=== PATIENT | male | born 1985 | race Caucasian/White ===

== ENCOUNTER 2024-01-06 19:12 | Emergency (ER) | payer SELFPAY ==
[2024-01-06 19:24] VITALS: BP 150/91; PULSE 107; TEMP 36.8; O2SAT 99; BMI 23.7
--- NOTE | 2024-01-06 19:33 | ED.GENADUL1 ---
HPI HPI - General Adult General Chief complaint: Skin/Abscess/Foreign Body Stated complaint: Upper Extremity Laceration/Puncture Time Seen by Provider: 01/06/24 19:29 Source: patient Mode of arrival: walk-in Limitations: no limitations History of Present Illness HPI narrative: Patient is a 38-year-old male who presents to the emergency department for evaluation of a laceration to the distal tip of the left third finger. He states he cut his finger on a razor knife. Bleeding is well-controlled. He had no other associated injuries. Unknown last tetanus. He is right-hand dominant. Related Data Home Medications ?Medication ?Instructions ?Recorded ?Confirmed No Known Home Medications 01/06/24 01/06/24 Allergies Allergy/AdvReac Type Severity Reaction Status Date / Time No Known Drug Allergies Allergy Verified 01/06/24 19:28 Opioid HPI Opioid Management Most Recent Opioid Data: No Data to Display Review of Systems ROS Constitutional Denies: fever or chills Ears, nose, mouth, and throat Denies: throat pain or nasal congestion Respiratory Denies: shortness of breath Gastrointestinal Denies: nausea or vomiting Integumentary/Breast Denies: rash Hematologic/Lymphatic Denies: easy bruising or easy bleeding Exam Narrative Exam Narrative: Gen.: Awake, alert, in no distress Head: Normocephalic, atraumatic ENT: Moist mucous membranes Respiratory: No respiratory distress Extremities: Moves extremities equally, 1.5 cm skin flap laceration adjacent to the fingernail of the left middle finger, distal phalanx at the tip of the finger. No bony involvement, no tendon visualization. No active bleeding. No extension of the laceration through the fingernail. Psych: Normal mood and affect Neuro: No focal neuro deficit Skin: Warm, dry, intact Constitutional Vital Signs, click to edit/add: Last Vital Signs Temp 98.2 F 01/06/24 19:24 Pulse 75 01/06/24 20:11 Resp 18 01/06/24 20:11 BP 138/88 01/06/24 20:11 Pulse Ox 99 01/06/24 20:11 O2 Del Method Room Air 01/06/24 20:11 Course Vital Signs Vital signs: Vital Signs Temperature 98.2 F 01/06/24 19:24 Pulse Rate 107 H 01/06/24 19:24 Respiratory Rate 18 01/06/24 19:24 Blood Pressure 150/91 H 01/06/24 19:24 Pulse Oximetry 99 01/06/24 19:24 Oxygen Delivery Method Room Air 01/06/24 19:24 Temperature 98.2 F 01/06/24 19:24 Pulse Rate 75 01/06/24 20:11 Respiratory Rate 18 01/06/24 20:11 Blood Pressure 138/88 01/06/24 20:11 Pulse Oximetry 99 01/06/24 20:11 Oxygen Delivery Method Room Air 01/06/24 20:11 Medical Decision Making MDM Narrative Medical decision making narrative: Laceration was repaired without difficulty. Please see procedure note for details. Sutures removed in 7 to 10 days with PCP. Tetanus updated in the emergency department. Return to the ER if symptoms change or worsen Laceration repair: Done under sterile conditions. The use of Shur-Clens prep the area. Local injection with lidocaine 1% was used, approximately 5 cc. The wound was irrigated copiously with normal saline. The wound was explored there was no evidence of foreign material. The laceration was approximated with 5-0 nylon. 5 simple interrupted sutures were placed. Patient tolerated the procedure well. The patient was neurovascularly intact post. the patient had bacitracin applied to the laceration and a dry sterile dressing was place. The patient will need to follow-up in the next 7-10 days for removal SUPERVISED APC VISIT, PHYSICIAN ATTESTATION: Based on the medical record the care appears appropriate. ? Medical Records Medical records reviewed: Yes I reviewed the patient's medical records Discharge Plan Discharge Stand Alone Forms: Portal Instructions Chief Complaint: Skin/Abscess/Foreign Body Clinical Impression: Laceration of left middle finger Patient Disposition: Home, Self-Care Time of Disposition Decision: 19:37 Condition: Good Mode of Transportation: Private Vehicle Prescriptions / Home Meds: No Action No Known Home Medications Print Language: Bahamian Instructions: Laceration (ED) Additional Instructions: Sutures removed in 7-10 days with PCP Referrals: Hong Page MD [Primary Care Provider] - 1 week Discharge Date/Time: 01/06/24 20:11
[2024-01-06] MEDS: ADACEL DIPH,PERTUSS(ACELL),TET VAC/PF 0.5 ML ADULT SYRINGE IM (20:05)
[2024-01-06] MEDS: BACITRACIN 0.9 GM PACKET 1 PACKET TOPICAL (20:09)
[2024-01-06] MEDS: LIDOCAINE HCL 1% 100 MG/10 ML MDV INJ (20:10)
[2024-01-06 20:11] VITALS: BP 138/88; PULSE 75; O2SAT 99
== END 2024-01-06 20:11 | disposition home or self-care (01) ==
PROVIDERS: Emergency Provider Emergency Medicine; Family Provider Family Medicine; PCP Family Medicine
DX: S61.213A Laceration without foreign body of left middle finger without damage to nail, initial encounter (principal); Z23 Encounter for immunization; W26.0XXA Contact with knife, initial encounter
CPT/HCPCS: 12001; 90471; 90715; 99284

== ENCOUNTER 2024-12-22 07:20 | Emergency (ER) | payer OTHER, SELFPAY ==
[2024-12-22] VITALS (29 sets, daily range): BP systolic 94–133; BP diastolic 43–89; PULSE 99–117; TEMP 36.4–36.6; O2SAT 98–100
[2024-12-22] MEDS: NALOXONE HCL 2 MG/2 ML SYRINGE IV (07:20)
--- NOTE | 2024-12-22 07:23 | XR_ITS ---
[facility] [place] [id number] Patient Name: YURY BEAVER MRN: [id number] date: 1985 Sex: M Assigned Patient Location: ER Current Patient Location: ED.MAIN Accession/Order Number: [id number] Exam Date: 12/22/2024 09:01 Report Date: 12/22/2024 09:02 At the request of: KAYDEN TORRES MD Procedure: XR chest 1V PORTABLE AP ERECT CHEST 0718 hours CLINICAL HISTORY: Overdose with altered mental status COMPARISON: None The heart is within normal limits. There is no vascular congestion. No consolidation is noted. There is no effusion or pneumothorax. The osseous structures are intact. XR/XR chest 1V IMPRESSION: NO ACUTE FINDINGS Impression dictated by: Monica Gerard M.D. 12/22/2024 9:02 AM Dictation Location: [place] [address] Electronically authenticated by: [id number] Y Date: 12/22/2024 09:02
--- NOTE | 2024-12-22 07:23 | ECG_ITS ---
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 Measurements Intervals Scheller Rate: 116 P: 90 MI: 156 QRS: 84 QRSD: 100 T: 53 QT: 342 QTc: 411 Interpretive Statements 1120 Sinus tachycardia 9140 abnormal rhythm ECG No previous ECG available for comparison Electronically Signed On 12-22-2024 21:03:09 EDT by YENY EPSTEIN M.D.
--- OUTSIDE RECORDS SUMMARY | 2024-12-22 07:28 | XMS_ITS | Encounter Summary ---
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 Ballistics Professor Name Role Phone Unavailable Primary Care Provider Unavailabl e Encounter Details Date Type Department Care Team (Late st Contact Info) Description 03/04/2024 Telephone [facility] [address] [place] [address] Araseli Phelps, OT [address] [place] [address] Social History Tobacco Use Types Packs/Day Years Used Date Smoking Tobacco: Never Assessed Sex and Gender Information Value Date Recorded Sex Assigned at Not on file Legal Sex Male 7:04 PM EDT Gender Identity Not on file Sexual Orientation Not on file documented as of this encounter Plan of Treatment Not on file documented as of this encounter Visit Diagnoses Not on filedocumented in this encounter
--- OUTSIDE RECORDS SUMMARY | 2024-12-22 07:28 | XMS_ITS | Clinical Summary ---
Author Organization [facility] Address [address] [place] [address] Care Team Providers Care Bottom Crane Operator Name Role Phone Unavailable Primary Care Provider Unavailabl e Social History Tobacco Use Types Packs/Day Years Used Date Smoking Tobacco: Never Assessed Sex and Gender Information Value Date Recorded Sex Assigned at Not on file Legal Sex Male 7:04 PM EDT Gender Identity Not on file Sexual Orientation Not on file Plan of Treatment Not on file
[2024-12-22] MEDS: NALOXONE HCL IV ×2 (07:30→10:30)
[2024-12-22] MEDS: SODIUM CHLORIDE 0.9% IV ×2 (07:30→10:30)
[2024-12-22 07:34] LABS: Glucometer 48 mg/dL (74-106)
[2024-12-22] MEDS: DEXTROSE 10 % IN WATER 1,000 ML 50 ML IV (07:43)
[2024-12-22] MEDS: DEXTROSE 50 %-WATER 25 GM/50 ML SYRINGE IV (07:45)
[2024-12-22 07:48] LABS: Hematocrit 44.6 % (42.0-54.0); Mean Corpuscular HGB Conc 33.6 g/dL (29.9-35.2); Mean Corpuscular Hemoglobin 32.6 pg (25.9-34.0); Mean Platelet Volume 12.4 fL (9.5-13.5); Platelet Count 246 10^3/uL (150-450); White Blood Count 26.9 10^3/uL (4.0-11.0)
[2024-12-22] MEDS: 0.9 % SODIUM CHLORIDE 1,000 ML 1000 ML IV ×2 (07:52→09:08)
[2024-12-22] MEDS: ONDANSETRON PF 4 MG/2 ML VIAL IV (07:56)
[2024-12-22 08:00] LABS: Glucometer 150 mg/dL (74-106)
[2024-12-22 08:01] LABS: INR 1.17; Prothrombin Time 12.2 sec (9.0-11.6)
[2024-12-22 08:08] LABS: Alanine Aminotransferase 157 U/L (16-63); Albumin Globulin Ratio 1.1; Albumin Level 3.5 g/dL (3.4-5.0); Alkaline Phosphatase 119 U/L (46-116); Anion Gap 18.2; Aspartate Amino Transferase 201 U/L (15-37); BUN Creatinine Ratio 11.2; Bilirubin Total 0.1 mg/dL (0.2-1.0); Calcium 7.4 mg/dL (8.5-10.1); Carbon Dioxide 25.2 mmol/L (21.0-32.0); Chloride 103 mmol/L (98-107); Estimated GFR (African America 35 (>=60 mL/min/1.73m^2); Estimated GFR (Non-African Ame 29 (>=60 mL/min/1.73m^2); Globulin 3.2 g/dL; Glucose 153 mg/dL (74-106); Potassium 5.4 mmol/L (3.5-5.1); Sodium 141 mmol/L (136-145); Total Protein 6.7 g/dL (6.4-8.2)
[2024-12-22 08:14] LABS: Band Neutrophils Absolute 0.3 10^3/uL (0.0-0.3); Lymphocytes Absolute Manual 2.15 10^3/uL (1.20-3.80); Monocytes Absolute Manual 3.22 10^3/uL (0.30-0.80); Segmented Neut Absolute Manual 21.25 10^3/uL (1.4-6.5)
[2024-12-22 08:16] LABS: TSH W/ REFLEX FT4 2.148 uIU/mL (0.358-3.740)
[2024-12-22 08:20] LABS: Creatine Kinase 161 U/L (39-308); Ethanol <3 mg/dL
[2024-12-22 08:22] LABS: Acetaminophen <2.0 ug/mL (10.0-30.0); Lactate/Lactic Acid 4.1 mmol/L (0.4-2.0); Salicylate <2.8 mg/dL (<=19.9); Troponin I High Sensitivity 230.5 pg/mL (4.0-76.1)
[2024-12-22 08:23] LABS: Magnesium 2.4 mg/dL (1.8-2.4)
--- NOTE | 2024-12-22 08:27 | ED.GENADUL1 ---
HPI HPI - General Adult General Chief complaint: Overdose Stated complaint: OVERDOSE Time Seen by Provider: 12/22/24 07:23 Source: family and law enforcement Mode of arrival: ambulance Limitations: altered mental status History of Present Illness HPI narrative: Patient is a 39-year-old male who is presenting to the ER today with chief complaint of overdose of fentanyl possibly. Mother found patient at 730 this morning, laying sideways in the bed. Patient was unresponsive. Patient currently living with mother. Patient does have a illicit drug history. Mother thought patient has been sober and working. No trauma or injury that we are aware of. Patient was lying in bed, no vomit around the patient. Patient was unresponsive. There was a empty Narcan bottle underneath his pillow. Mother found a another Narcan and one of his packets downstairs and she administer that as well. Police administered a Narcan into each nostril. Patient has potentially had a total of 12 to 16 mg of Narcan so far prior to arrival per EMS and police. The phones are currently not working for internal/external phone calls at [facility]. EMS arrived, stating that patient had had 60 mg of Narcan and this was what EMS are initially stated. When patient was placed in room 5, he had a GCS of 6. His eyes were open, he had no verbal stimuli, he had no response to painful stimuli. Patient has no scalp hematoma. Patient has some bruising noted to his chest wall from sternal rubs. No other signs of trauma. Patient will be sent to CT of the head and C-spine will come back and reassess his GCS. If it is still less than 8, he will be intubated. All systems are negative except as noted/marked. All systems reviewed and otherwise negative. Nurses note and vital signs reviewed and patient is not hypoxic. Patient was placed on 2 L for comfort. Patient arrived with no oxygen. General: The patient appears severe distress secondary to unresponsive. Patient is resting comfortably on cart. Patient is toxic, lethargic, or listless Skin: Warm, dry, no pallor noted. There is no rash noted. No petechiae, purpura. Patient has bruising to chest wall from sternal rubs at work being done prior to arrival. Head: Normocephalic, atraumatic, patient is not in a cervical collar. Eye: Normal conjunctiva, no drainage, EOMI. PERRL. Pupils are 3 mm, sluggish equal bilateral. Ears, Nose, Mouth, and Throat: oral mucosa is moist. Nares patent. Mouth without vesicles. No signs of tongue laceration, no signs of intraoral trauma. Cardiovascular: Tachycardic regular Rate and Rhythm, no murmur, gallop, rub Respiratory: Patient is mild respiratory distress, patient has sonorous respirations, no signs of emesis, no obvious signs of possible aspiration no accessory muscle use, lungs are clear to auscultation, no wheezing, rales or rhonchi Back: non-tender, no CVA tenderness bilaterally to percussion. No CT LS midline pain GI: no tenderness to palpation, no masses appreciated. No rebound, guarding, or rigidity noted. No distention : Patient is circumcised, 2 descended testicles. No signs of trauma or abuse surrounding penis, testicles, scrotum, or perineum. No bruising or trauma noted. Musculoskeletal: Patient has full range of motion of all of the extremities, no motor, sensory, or focal neurological deficits Neurological: A&O x0, patient initially is not speaking Related Data Home Medications ?Medication ?Instructions ?Recorded ?Confirmed No Known Home Medications 01/06/24 01/06/24 Allergies Allergy/AdvReac Type Severity Reaction Status Date / Time No Known Drug Allergies Allergy Verified 12/22/24 08:08 Exam Constitutional Vital Signs, click to edit/add: Last Vital Signs Temp 98 F 12/22/24 07:20 Pulse 99 H 12/22/24 10:50 Resp 12 12/22/24 10:50 BP 112/89 12/22/24 10:50 Pulse Ox 100 12/22/24 10:50 O2 Del Method Nasal Cannula 12/22/24 07:20 O2 Flow Rate 2 12/22/24 07:20 Course Vital Signs Vital signs: Vital Signs Temperature 98 F 12/22/24 07:20 Pulse Rate 116 H 12/22/24 07:20 Respiratory Rate 12 12/22/24 07:20 Blood Pressure 111/76 12/22/24 07:20 Pulse Oximetry 100 12/22/24 07:20 Oxygen Delivery Method Nasal Cannula 12/22/24 07:20 Oxygen Delivery Flow Rate 2 12/22/24 07:20 Temperature 98 F 12/22/24 07:20 Pulse Rate 99 H 12/22/24 10:50 Respiratory Rate 12 12/22/24 10:50 Blood Pressure 112/89 12/22/24 10:50 Pulse Oximetry 100 12/22/24 10:50 Oxygen Delivery Method Nasal Cannula 12/22/24 07:20 Oxygen Delivery Flow Rate 2 12/22/24 07:20 Medical Decision Making MDM Narrative Medical decision making narrative: Patient seen and examined: When patient initially arrived, the phones were not working in the hospital system, we did not receive a phone call at a time. Patient was placed in trauma room 5. Patient had a GCS of 6. Patient was not talking, not responding to painful stimuli, patient did have his eyes open. Patient was given another 2 mg of Narcan IV, a Narcan drip has been ordered, patient will be taken to CT for head and cervical spine, and when patient returns we will reassess GCS and possibly intubate the patient. Septic/overdose/change in mental status has been initiated. Physical exam when patient arrived back from CT. Patient has his eyes open. Patient is intermittently saying words and I cannot hear patient does have filling station attendant upon command, GCS 13. Patient is more alert, but looks very confused. Oxygen has maintained. Patient breath sounds still equal bilateral, no wheezing, crackles, rales. Patient is still slightly tachycardic. Differential diagnosis includes but is not limited to: Intracranial hemorrhage, intracranial edema, overdose, MN, dehydration, electrolyte abnormality, pneumonia, pulmonary edema, trauma, encephalopathy, sepsis Diagnostics and management: Patient will have laboratory studies Relevant laboratory interpretation: Patient's white blood cells were 26, potassium 5.4, VANNESSA 28/2.49, lactic acid 4.1, calcium 7.4, bilirubin 0.1, AST/ALT 201/157. Alk phos 119. Troponin 230. ABG 7.3 3/36/107/19. Radiological studies: Please see the formal radiological report. CT BRAIN WITHOUT CONTRAST: COMPARISON: None FINDINGS: There is artifact at the posterior fossa. The ventricles are normal in size and position. Ricketts-white differentiation is maintained. There are no areas of abnormal attenuation. There is no hemorrhage, mass effect or extra-axial collections. The imaged paranasal sinuses-severe cells are clear. IMPRESSION: NO ACUTE INTRACRANIAL ABNORMALITY. CT CERVICAL SPINE WITHOUT CONTRAST WITH 3D RECONSTRUCTIONS: COMPARISON: None FINDINGS: There is slight reversal of the normal cervical curvature. Alignment is maintained in the sagittal plane. No fractures are identified. The disc spaces are uniform. There is minimal end plate spurring and facet disease. The atlantoaxial relationship is maintained. No prevertebral soft tissue swelling is seen. Small shotty cervical lymph nodes are visualized. IMPRESSION: NO ACUTE BONY INJURY. Reevaluation: When patient arrived back from CT, patient had his eyes open, patient would squeeze his hands on command, patient is speaking inappropriate words, GCS of 13. Patient is stating he cannot hear. I am yelling at the patient with a extremely loud voice, and patient is stating I cannot hear bilateral TM was evaluated. No erythema, perforation, bulging, no acute findings on ear exam. Shared decision making: I discussed with the patient/mother/brother the necessary laboratory findings and radiological findings. Social barriers to healthcare: There are no food insecurities, there is no issue with transportation, there are no insurance barriers. Disposition: I discussed with the patient/mother/brother need for admission. I have spoken to Dr. Da Silva twice on this patient. First time I spoke to Dr Da Silva was 0833. He stated patient would need to be transferred to [facility] in the ICU secondary to Narcan drip, D10 drip, and elevated troponin. We then initially called [facility] and spoke to the pump and blower operator, she stated the beds were full with they will page a hospitalist. I then spoke to Dr. Da Silva again at approximately 0840. He stated there is no beds available, we will need to transfer. 0851 I did speak to the hospitalist at [facility], Dr. Holder. He stated they do have ICU beds available, and he is accepting of this patient. He has taken report and stated to call the nursing supervisor [facility] and they do accept this patient. He is aware of Narcan drip, D10 drip. 0925 patient's troponin has elevated from 230 to 538. Patient will be started on a heparin drip secondary to non-STEMI. This very well could be demand ischemia, but patient troponin has almost doubled, patient will be started on IV heparin drip prophylactically. CT of the head and cervical spine are negative. 0925 Patient's blood sugars have been checked every 30 minutes since he has been here. Patient's blood sugar when he got back from CAT scan was 48. At 8:00, blood sugar was 150. 830 the blood sugar was 100. 9:00, the blood sugar was 95. Patient is still on D10 drip. Patient is also on a Narcan drip. Patient will be started on the IV heparin drip. 09 Patient is being transferred to [facility] ICU, Lashawn iniguez is speaking to EMS staff at this time. 0935 10 minutes was spent at bedside again with patient, mother, Joanna AGUILAR. Patient is maintaining his D10 sugar drip, maintaining sugars in the 90s to 100s. Patient is becoming more somnolent, patient's Narcan drip has been increased from 1 mg to 2 mg/h. Mother was again updated on all the lab test that I have discussed with her twice before, trying to keep her informed with simple information but realized the critical nature of the patient. I discussed white blood cells, kidney function, heart function, the IV medications were given, calcium, heparin, Narcan, glucose. Mother is very thankful for help, thankful that we are going to [facility] where she works as a pet training instructor. There has been one-on-one care with this patient since 730 this morning. Greater than 2 hours of one-on-one care with this patient individually, With nursing staff. 0945 Dr Holder is updated with EMS arrival time at 11:30 AM. If there is can be more delays in that, Dr. Holder would like patient life flighted or if there is any change in his status. Mother has been updated on 1130 arrival time as well for EMS, and is aware there may be a possible [facility] if needed to get patient to [facility]. 0950 I did speak to Patricio at [facility] The EMS squad is coming from [facility], they are at approximately the interchange of 280/75. Patricio is aware that if there is any delays in transfer or any changes, please notify us and then we will be calling [facility]. She was very helpful, understands. 1817 I gave report to the spotlight operator who is taking patient to [facility] for [facility] ICU. Patient's last blood sugar at 10:00 was around 100. Patient will still open his eyes to verbal stimuli, patient is still squeezing his hands upon command. Patient has been sleeping the last hour. Patient's lactic acid improved from 4.1-3.3. Patient's vital signs in the past hour has had minimal tachycardia from 100-110, oxygen has been 100% on 2 L, patient's respiratory rate has been 16-17, blood pressure has been okay as well. Mother has been given 1 last update, answered questions. Critical care time 85 minutes exclusive from separate billable procedures that were performed. The following was considered in the determination of critical care but not limited to the level of medical decision making, intensive cardiac and/or respiratory monitoring, frequent vital sign monitoring, evaluation of laboratory studies, evaluation of radiographic studies, oxygen monitoring, and constant monitoring and speaking to family at bedside Lab Data Labs: Lab Results 12/22/24 12/22/24 12/22/24 Range/Units 07:30 07:35 07:59 WBC 26.9 H (4.0-11.0) 10^3/uL RBC 4.60 L (4.70-6.10) 10^6/uL Hgb 15.0 (14.0-18.0) g/dL Hct 44.6 (42.0-54.0) % MCV 97.0 H (80.0-94.0) fL MCH 32.6 (25.9-34.0) pg MCHC 33.6 (29.9-35.2) g/dL RDW 13.0 (11.0-15.0) % Plt Count 246 (150-450) 10^3/uL MPV 12.4 (9.5-13.5) fL Neut % (Auto) Not Reportable Lymph % (Auto) Not Reportable [place] % (Auto) Not Reportable Eos % (Auto) Not Reportable Baso % (Auto) Not Reportable Neut # (Auto) Not Reportable Lymph # (Auto) Not Reportable [place] # (Auto) Not Reportable Eos # (Auto) Not Reportable Baso # (Auto) Not Reportable Abs Immat Gran (auto) Not Reportable Seg Neuts % (Manual) 79.0 H (43.0-75.0) Band Neutrophils % 1.0 (0-5) % Lymphocytes % (Manual) 8.0 L (20.5-60.0) % Monocytes % (Manual) 12.0 (1.7-12.0) % Eosinophils % (Manual) 0.0 L (0.9-7.0) % Basophils % (Manual) 0.0 L (0.2-2.0) % Imm/Tot Granulo (auto) Not Reportable Neutrophils # (Manual) 21.25 H (1.4-6.5) 10^3/uL Band Neutrophils # 0.3 (0.0-0.3) 10^3/uL Lymphocytes # (Manual) 2.15 (1.20-3.80) 10^3/uL Monocytes # (Manual) 3.22 H (0.30-0.80) 10^3/uL Eosinophils # (Manual) 0.00 (0.00-0.70) 10^3/uL Basophils # (Manual) 0.00 (0.00-0.10) 10^3/uL PT 12.2 H (9.0-11.6) sec INR 1.17 Puncture Site ABG pH (7.350-7.450) ABG pCO2 (35.0-45.0) mmHg ABG pO2 (80.0-100.0) mmHg ABG HCO3 (22.0-26.0) mmol/L ABG O2 Saturation % ABG Base Excess (-2.0-2.0) mmol/L Bebo Test (POSITIVE) O2 Liters/Min Sodium 141 (136-145) mmol/L Potassium 5.4 H (3.5-5.1) mmol/L Chloride 103 (98-107) mmol/L Carbon Dioxide 25.2 (21.0-32.0) mmol/L Anion Gap 18.2 BUN 28.0 H (7.0-18.0) mg/dL Creatinine 2.49 H (0.70-1.30) mg/dL Est GFR ( Amer) 35 L (>=60 mL/min/1.73m^2) Est GFR (Non-Af Amer) 29 L (>=60 mL/min/1.73m^2) BUN/Creatinine Ratio 11.2 Glucose 153 H (74-106) mg/dL Lactate 4.1 H* (0.4-2.0) mmol/L Calcium 7.4 L (8.5-10.1) mg/dL Magnesium 2.4 (1.8-2.4) mg/dL Total Bilirubin 0.1 L (0.2-1.0) mg/dL AST 201 H (15-37) U/L ALT 157 H (16-63) U/L Alkaline Phosphatase 119 H (46-116) U/L Total Creatine Kinase 161 (39-308) U/L Troponin I High Sens 230.5 H* (4.0-76.1) pg/mL NT-Pro-B Natriuret Pep 151.0 (<=450.0) pg/mL Total Protein 6.7 (6.4-8.2) g/dL Albumin 3.5 (3.4-5.0) g/dL Globulin 3.2 g/dL Albumin/Globulin Ratio 1.1 TSH & Free T4 Interp 2.148 (0.358-3.740) uIU/mL Salicylates <2.8 (<=19.9) mg/dL Acetaminophen <2.0 L (10.0-30.0) ug/mL Ethanol Quant <3 mg/dL POC Glucose 48 L* 150 H (74-106) mg/dL 12/22/24 12/22/24 12/22/24 Range/Units 08:25 08:31 08:52 WBC (4.0-11.0) 10^3/uL RBC (4.70-6.10) 10^6/uL Hgb (14.0-18.0) g/dL Hct (42.0-54.0) % MCV (80.0-94.0) fL MCH (25.9-34.0) pg MCHC (29.9-35.2) g/dL RDW (11.0-15.0) % Plt Count (150-450) 10^3/uL MPV (9.5-13.5) fL Neut % (Auto) Lymph % (Auto) [place] % (Auto) Eos % (Auto) Baso % (Auto) Neut # (Auto) Lymph # (Auto) [place] # (Auto) Eos # (Auto) Baso # (Auto) Abs Immat Gran (auto) Seg Neuts % (Manual) (43.0-75.0) Band Neutrophils % (0-5) % Lymphocytes % (Manual) (20.5-60.0) % Monocytes % (Manual) (1.7-12.0) % Eosinophils % (Manual) (0.9-7.0) % Basophils % (Manual) (0.2-2.0) % Imm/Tot Granulo (auto) Neutrophils # (Manual) (1.4-6.5) 10^3/uL Band Neutrophils # (0.0-0.3) 10^3/uL Lymphocytes # (Manual) (1.20-3.80) 10^3/uL Monocytes # (Manual) (0.30-0.80) 10^3/uL Eosinophils # (Manual) (0.00-0.70) 10^3/uL Basophils # (Manual) (0.00-0.10) 10^3/uL PT (9.0-11.6) sec INR Puncture Site R rad ABG pH 7.338 L (7.350-7.450) ABG pCO2 36.6 (35.0-45.0) mmHg ABG pO2 107.0 H (80.0-100.0) mmHg ABG HCO3 19.7 L (22.0-26.0) mmol/L ABG O2 Saturation 99.2 % ABG Base Excess -6.1 L (-2.0-2.0) mmol/L Bebo Test Positive (POSITIVE) O2 Liters/Min 2 Sodium (136-145) mmol/L Potassium (3.5-5.1) mmol/L Chloride (98-107) mmol/L Carbon Dioxide (21.0-32.0) mmol/L Anion Gap BUN (7.0-18.0) mg/dL Creatinine (0.70-1.30) mg/dL Est GFR ( Amer) (>=60 mL/min/1.73m^2) Est GFR (Non-Af Amer) (>=60 mL/min/1.73m^2) BUN/Creatinine Ratio Glucose (74-106) mg/dL Lactate (0.4-2.0) mmol/L Calcium (8.5-10.1) mg/dL Magnesium (1.8-2.4) mg/dL Total Bilirubin (0.2-1.0) mg/dL AST (15-37) U/L ALT (16-63) U/L Alkaline Phosphatase (46-116) U/L Total Creatine Kinase (39-308) U/L Troponin I High Sens 538.4 H* (4.0-76.1) pg/mL NT-Pro-B Natriuret Pep (<=450.0) pg/mL Total Protein (6.4-8.2) g/dL Albumin (3.4-5.0) g/dL Globulin g/dL Albumin/Globulin Ratio TSH & Free T4 Interp (0.358-3.740) uIU/mL Salicylates (<=19.9) mg/dL Acetaminophen (10.0-30.0) ug/mL Ethanol Quant mg/dL POC Glucose 100 (74-106) mg/dL 12/22/24 12/22/24 12/22/24 Range/Units 08:56 09:29 10:02 WBC (4.0-11.0) 10^3/uL RBC (4.70-6.10) 10^6/uL Hgb (14.0-18.0) g/dL Hct (42.0-54.0) % MCV (80.0-94.0) fL MCH (25.9-34.0) pg MCHC (29.9-35.2) g/dL RDW (11.0-15.0) % Plt Count (150-450) 10^3/uL MPV (9.5-13.5) fL Neut % (Auto) Lymph % (Auto) [place] % (Auto) Eos % (Auto) Baso % (Auto) Neut # (Auto) Lymph # (Auto) [place] # (Auto) Eos # (Auto) Baso # (Auto) Abs Immat Gran (auto) Seg Neuts % (Manual) (43.0-75.0) Band Neutrophils % (0-5) % Lymphocytes % (Manual) (20.5-60.0) % Monocytes % (Manual) (1.7-12.0) % Eosinophils % (Manual) (0.9-7.0) % Basophils % (Manual) (0.2-2.0) % Imm/Tot Granulo (auto) Neutrophils # (Manual) (1.4-6.5) 10^3/uL Band Neutrophils # (0.0-0.3) 10^3/uL Lymphocytes # (Manual) (1.20-3.80) 10^3/uL Monocytes # (Manual) (0.30-0.80) 10^3/uL Eosinophils # (Manual) (0.00-0.70) 10^3/uL Basophils # (Manual) (0.00-0.10) 10^3/uL PT (9.0-11.6) sec INR Puncture Site ABG pH (7.350-7.450) ABG pCO2 (35.0-45.0) mmHg ABG pO2 (80.0-100.0) mmHg ABG HCO3 (22.0-26.0) mmol/L ABG O2 Saturation % ABG Base Excess (-2.0-2.0) mmol/L Bebo Test (POSITIVE) O2 Liters/Min Sodium (136-145) mmol/L Potassium (3.5-5.1) mmol/L Chloride (98-107) mmol/L Carbon Dioxide (21.0-32.0) mmol/L Anion Gap BUN (7.0-18.0) mg/dL Creatinine (0.70-1.30) mg/dL Est GFR ( Amer) (>=60 mL/min/1.73m^2) Est GFR (Non-Af Amer) (>=60 mL/min/1.73m^2) BUN/Creatinine Ratio Glucose (74-106) mg/dL Lactate (0.4-2.0) mmol/L Calcium (8.5-10.1) mg/dL Magnesium (1.8-2.4) mg/dL Total Bilirubin (0.2-1.0) mg/dL AST (15-37) U/L ALT (16-63) U/L Alkaline Phosphatase (46-116) U/L Total Creatine Kinase (39-308) U/L Troponin I High Sens (4.0-76.1) pg/mL NT-Pro-B Natriuret Pep (<=450.0) pg/mL Total Protein (6.4-8.2) g/dL Albumin (3.4-5.0) g/dL Globulin g/dL Albumin/Globulin Ratio TSH & Free T4 Interp (0.358-3.740) uIU/mL Salicylates (<=19.9) mg/dL Acetaminophen (10.0-30.0) ug/mL Ethanol Quant mg/dL POC Glucose 95 93 106 (74-106) mg/dL 12/22/24 12/22/24 Range/Units 10:28 11:01 WBC (4.0-11.0) 10^3/uL RBC (4.70-6.10) 10^6/uL Hgb (14.0-18.0) g/dL Hct (42.0-54.0) % MCV (80.0-94.0) fL MCH (25.9-34.0) pg MCHC (29.9-35.2) g/dL RDW (11.0-15.0) % Plt Count (150-450) 10^3/uL MPV (9.5-13.5) fL Neut % (Auto) Lymph % (Auto) [place] % (Auto) Eos % (Auto) Baso % (Auto) Neut # (Auto) Lymph # (Auto) [place] # (Auto) Eos # (Auto) Baso # (Auto) Abs Immat Gran (auto) Seg Neuts % (Manual) (43.0-75.0) Band Neutrophils % (0-5) % Lymphocytes % (Manual) (20.5-60.0) % Monocytes % (Manual) (1.7-12.0) % Eosinophils % (Manual) (0.9-7.0) % Basophils % (Manual) (0.2-2.0) % Imm/Tot Granulo (auto) Neutrophils # (Manual) (1.4-6.5) 10^3/uL Band Neutrophils # (0.0-0.3) 10^3/uL Lymphocytes # (Manual) (1.20-3.80) 10^3/uL Monocytes # (Manual) (0.30-0.80) 10^3/uL Eosinophils # (Manual) (0.00-0.70) 10^3/uL Basophils # (Manual) (0.00-0.10) 10^3/uL PT (9.0-11.6) sec INR Puncture Site ABG pH (7.350-7.450) ABG pCO2 (35.0-45.0) mmHg ABG pO2 (80.0-100.0) mmHg ABG HCO3 (22.0-26.0) mmol/L ABG O2 Saturation % ABG Base Excess (-2.0-2.0) mmol/L Bebo Test (POSITIVE) O2 Liters/Min Sodium (136-145) mmol/L Potassium (3.5-5.1) mmol/L Chloride (98-107) mmol/L Carbon Dioxide (21.0-32.0) mmol/L Anion Gap BUN (7.0-18.0) mg/dL Creatinine (0.70-1.30) mg/dL Est GFR ( Amer) (>=60 mL/min/1.73m^2) Est GFR (Non-Af Amer) (>=60 mL/min/1.73m^2) BUN/Creatinine Ratio Glucose (74-106) mg/dL Lactate 3.3 H* (0.4-2.0) mmol/L Calcium (8.5-10.1) mg/dL Magnesium (1.8-2.4) mg/dL Total Bilirubin (0.2-1.0) mg/dL AST (15-37) U/L ALT (16-63) U/L Alkaline Phosphatase (46-116) U/L Total Creatine Kinase (39-308) U/L Troponin I High Sens (4.0-76.1) pg/mL NT-Pro-B Natriuret Pep (<=450.0) pg/mL Total Protein (6.4-8.2) g/dL Albumin (3.4-5.0) g/dL Globulin g/dL Albumin/Globulin Ratio TSH & Free T4 Interp (0.358-3.740) uIU/mL Salicylates (<=19.9) mg/dL Acetaminophen (10.0-30.0) ug/mL Ethanol Quant mg/dL POC Glucose 89 (74-106) mg/dL ECG Data Attestation: I personally reviewed and interpreted this ECG as follows: (EKG interpretation. Sinus tachycardia at 116 beats a minute. Normal axis deviation. No acute ST elevation, no acute ectopy. QTc of 411.) Interpretation: EKG #2. EKG interpretation. Sinus tachycardia at 107. Normal axis deviation. QTc of 405. No STEMI, no acute changes. Discharge Plan Discharge Chief Complaint: Overdose Clinical Impression: Opiate overdose, Unresponsive episode, Non-ST elevation MN (NSTEMI), Leukocytosis, VANNESSA (acute kidney injury), Hypocalcemia, Acidosis, lactic, Elevated LFTs, Acute hyperkalemia, Hearing loss Patient Disposition: [facility] Time of Disposition Decision: 08:50 Discharge Location: [facility] Condition: Critical Mode of Transportation: EMS
[2024-12-22 08:32] LABS: ABG PCO2 36.6 mmHg (35.0-45.0); Allen Test POSITIVE (POSITIVE); Base Excess ABG -6.1 mmol/L (-2.0-2.0); HCO3 ABG 19.7 mmol/L (22.0-26.0); Oxygen Saturation ABG 99.2 %; pH ABG 7.338 (7.350-7.450)
[2024-12-22 08:32] LABS: Glucometer 100 mg/dL (74-106)
[2024-12-22 08:33] LABS: Liters per Minute 2; O2 Mode NC; Puncture Site R RAD
[2024-12-22 08:57] LABS: Glucometer 95 mg/dL (74-106)
[2024-12-22] MEDS: ASPIRIN 81 MG TAB.CHEW 324 MG PO (09:09)
[2024-12-22 09:22] LABS: Troponin I High Sensitivity 538.4 pg/mL (4.0-76.1)
[2024-12-22] MEDS: CALCIUM GLUC IN NACL, ISO-OSM 1 GM/50 ML PLAST..BAG IV ×2 (09:25→09:56)
[2024-12-22 09:31] LABS: Glucometer 93 mg/dL (74-106)
--- NOTE | 2024-12-22 09:39 | ECG_ITS ---
[facility] Test Date: 2024-12-22 Pat Name: YURY BEAVER Department: Room: - Gender: Male Talent Partner: : [phone] Requested By: 0919 Order Number: [id number] Charles MD: YENY EPSTEIN M.D. Measurements Intervals [place] Rate: 107 P: 90 [place]: 148 QRS: 89 QRSD: 100 T: 49 QT: 342 QTc: 405 Interpretive Statements 1120 Sinus tachycardia 9140 abnormal rhythm ECG Compared to ECG 12/22/2024 07:46:41 No significant changes Electronically Signed On 12-22-2024 21:04:06 EDT by YENY EPSTEIN M.D.
[2024-12-22] MEDS: HEPARIN SODIUM,PORCINE/D5W 25,000 UNIT/500 ML IV.SOLN 18 UNIT IV (09:42)
[2024-12-22 10:03] LABS: Glucometer 106 mg/dL (74-106)
[2024-12-22 10:59] LABS: Lactate/Lactic Acid 3.3 mmol/L (0.4-2.0)
[2024-12-22 11:02] LABS: Glucometer 89 mg/dL (74-106)
== END 2024-12-22 11:25 | disposition short-term general hospital (02) ==
PROVIDERS: Emergency Provider Emergency Medicine; Family Provider Family Medicine; PCP Family Medicine
DX: T40.2X4A Poisoning by other opioids, undetermined, initial encounter (principal); R40.4 Transient alteration of awareness; I21.4 Non-ST elevation (NSTEMI) myocardial infarction; D72.829 Elevated white blood cell count, unspecified; N17.9 Acute kidney failure, unspecified; E83.51 Hypocalcemia; E87.20 Acidosis, unspecified; R79.89 Other specified abnormal findings of blood chemistry; E87.5 Hyperkalemia; H91.90 Unspecified hearing loss, unspecified ear
CPT/HCPCS: 36415; 36600; 70450; 71045; 72125; 80053; 80179; 80307; 80320; 80329; 81001; 82550; 82805; 82947; 83605; 83735; 83880; 84443; 84484; 85007; 85025; 85027; 85610; 93005; 96365; 96366; 96368; 96375; 96376; 99291; 99292; J0613; J1230; J1644; J2405